=== PATIENT | male | born 1955 | race Caucasian/White ===

== ENCOUNTER 2019-05-13 11:17 | Day surgery (SDC) | payer BC ==
[~2019-05-13] VITALS: Ht 162.6 cm; Wt 81.0 kg
[2019-05-13 12:06] VITALS: BP 144/88
[2019-05-13] MEDS ORDERED: LACTATED RINGERS 1,000 ML IV SCH (12:27)
[2019-05-13 12:33] LABS: BASOPHILS # (AUTO) 0.07 x10^3/uL (0-0.1); BASOPHILS % (AUTO) 1 % (0-1); EOSINOPHILS # (AUTO) 0.31 x10^3/uL (0-0.4); EOSINOPHILS % (AUTO) 3 % (1-7); LYMPHOCYTES # (AUTO) 3.83 x10^3/uL (1-3.4); LYMPHOCYTES % (AUTO) 41 % (22-44); MD NO; MEAN CORPUSCULAR HEMOGLOBIN 31.6 pg (27.5-34.5); MEAN CORPUSCULAR HGB CONC 33.5 g/dL (33.2-36.2); MEAN CORPUSCULAR VOLUME 94.3 fL (81-97); MEAN PLATELET VOLUME 8.1 fL (7.4-10.4); MONOCYTES # (AUTO) 0.51 x10^3/uL (0.2-0.8); MONOCYTES % (AUTO) 6 % (2-9); NEUTROPHILS # (AUTO) 4.55 x10^3/uL (1.8-6.8); NEUTROPHILS % (AUTO) 49 % (42-75); PLATELET COUNT 251 x10^3/uL (130-400); RED BLOOD COUNT 4.91 x10^6/uL (4.38-5.82)
[2019-05-13] MEDS ORDERED: TRAZ50TA66 PO (12:35)
[2019-05-13] MEDS ORDERED: HYDR-36 PO (12:35)
[2019-05-13 12:44] LABS: ALANINE AMINOTRANSFERASE 26 U/L (12-78); ALBUMIN 3.8 g/dL (3.4-5.0); ANION GAP 9 mmol/L (5-15); CALCIUM 8.7 mg/dL (8.5-10.1); CHLORIDE 106 mmol/L (98-107); CREATININE 0.72 mg/dL (0.7-1.3); PROTHROMBIN TIME 10.5 Seconds (9.6-11.5)
[2019-05-13 12:50] LABS: ALKALINE PHOSPHATASE 49 U/L (45-117); BILIRUBIN,TOTAL 0.6 mg/dL (0.2-1.0); TOTAL PROTEIN 7.4 g/dL (6.4-8.2)
[2019-05-13] MEDS ORDERED: MITOMYCIN 40 MG in STERILE WATER 40 ML INTVESIC ONE (13:00)
[2019-05-13] MEDS ORDERED: MIDAZOLAM 1 MG/ML, 2ML ONE (13:27)
[2019-05-13] MEDS ORDERED: PROPOFOL 10 MG/ML, 20ML ONE (13:27)
[2019-05-13] MEDS ORDERED: FENTANYL PF 250 MCG/5ML ONE (13:27)
[2019-05-13] MEDS ORDERED: ROCURONIUM 10MG/ML,5ML ONE (13:27)
[2019-05-13] MEDS ORDERED: SUCCINYLCHOLINE 20 MG/ML, 10ML ONE (13:27)
[2019-05-13] MEDS ORDERED: DEXAMETHASONE 4 MG/ML, 1ML ONE ×2 (13:39→14:01)
[2019-05-13] MEDS ORDERED: CEFAZOLIN 1,000 MG ONE ×2 (13:42→14:01)
[2019-05-13] MEDS ORDERED: ONDANSETRON 2MG/ML, 2ML ONE ×2 (14:01)
[2019-05-13] MEDS ORDERED: OPIUM/BELLADONNA SUPP.RECT 16.2-60 MG ONE (14:01)
[2019-05-13] MEDS ORDERED: ALBUTEROL SULFATE 2.5 MG/3 ML NPPB PRN (14:30)
[2019-05-13] MEDS ORDERED: ACETAMINOPHEN 325 MG TABLET PO PRN (14:30)
[2019-05-13] MEDS ORDERED: EPHEDRINE 50 MG/ML, 1ML IVPush PRN (14:30)
[2019-05-13] MEDS ORDERED: HYDROmorphone 2 MG/ML, 1ML IVPush PRN (14:30)
[2019-05-13] MEDS ORDERED: OXYcodone 5 MG/5 ML ORAL.SOL UDC PO PRN (14:30)
[2019-05-13] MEDS ORDERED: ONDANSETRON ODT 8 MG PO PRN (14:30)
[2019-05-13] MEDS ORDERED: hydrALAzine 20 MG/ML, 1ML IV PRN (14:30)
[2019-05-13] MEDS ORDERED: HALOPERIDOL 5 MG/ML IV PRN (14:30)
[2019-05-13] MEDS ORDERED: MIDAZOLAM 1 MG/ML, 2ML IV PRN (14:30)
[2019-05-13] MEDS ORDERED: LABETALOL 5MG/ML, 20ML IV PRN (14:30)
[2019-05-13] MEDS ORDERED: PROMETHAZINE 12.5 MG SUPP PR PRN (14:30)
[2019-05-13] MEDS ORDERED: MEPERIDINE/PF 25MG/ML,1ML IVPush PRN (14:30)
[2019-05-13] MEDS ORDERED: PROMETHAZINE 25 MG/ML, 1ML IV PRN (14:30)
[2019-05-13] MEDS ORDERED: ONDANSETRON 2MG/ML, 2ML IV PRN (14:30)
[2019-05-13] MEDS ORDERED: DIAZEPAM 5 MG/ML, 2ML IVPush PRN (14:30)
[2019-05-13] MEDS ORDERED: FENTANYL PF 100 MCG/2ML ONE (14:34)
[2019-05-13] MEDS ORDERED: OXYcodone 5 MG/5 ML ORAL.SOL UDC ONE (14:35)
[2019-05-13] MEDS ORDERED: HYDROmorphone 1 MG/ML, 1ML INJ ONE (14:35)
[2019-05-13] MEDS: FENTANYL PF 100 MCG/2ML IV PRN ×2 (14:44→14:50)
[2019-05-13] MEDS ORDERED: PHENAZOPYRIDINE 200 MG TABLET ONE (14:58)
[2019-05-13] MEDS ORDERED: PHENAZOPYRIDINE 200 MG TABLET PO ONE (15:00)
== END 2019-05-13 16:20 | disposition home or self-care (01) ==
LOC: OUT 11:17
PROVIDERS: ATTEND Urology
DX: C67.5 Malignant neoplasm of bladder neck (principal); R31.0 Gross hematuria; N40.0 Benign prostatic hyperplasia without lower urinary tract symptoms; E66.3 Overweight; Z68.29 Body mass index [BMI] 29.0-29.9, adult; F17.210 Nicotine dependence, cigarettes, uncomplicated; Z79.01 Long term (current) use of anticoagulants; Z88.0 Allergy status to penicillin; Z98.52 Vasectomy status; Z82.49 Family history of ischemic heart disease and other diseases of the circulatory system
CPT/HCPCS: 36415; 52235; 80053; 85025; 85610; 85730; 87086; 88307; 93005; J0330; J0690; J1100; J2250; J2405; J2704; J3010; J9280